=== PATIENT | female | born 1990 | race Caucasian/White ===

== ENCOUNTER 2018-05-10 13:49 | Emergency (ER) | payer OTHER ==
[~2018-05-10] VITALS: Ht 167.6 cm; Wt 104.3 kg
== END 2018-05-10 20:57 | disposition home or self-care (01) ==
LOC: ER 13:49
DX: N39.0 Urinary tract infection, site not specified (principal)

== ENCOUNTER 2018-07-14 16:21 | Emergency (ER) | payer OTHER ==
[~2018-07-14] VITALS: Ht 167.6 cm; Wt 108.9 kg
== END 2018-07-14 21:51 | disposition home or self-care (01) ==
LOC: ER 16:21
DX: K52.9 Noninfective gastroenteritis and colitis, unspecified (principal)

== ENCOUNTER → 2019-01-10 | Emergency (ER) | payer OTHER ==
[~2019-01-10] VITALS: Ht 167.6 cm; Wt 107.0 kg
== END | disposition left against medical advice (07) ==
LOC: ER 12:34
DX: Z53.20 Procedure and treatment not carried out because of patient's decision for unspecified reasons (principal)

== ENCOUNTER 2021-04-15 12:53 | Emergency (ER) | payer OTHER ==
[~2021-04-15] VITALS: Ht 167.6 cm; Wt 117.9 kg
== END 2021-04-15 19:55 | disposition home or self-care (01) ==
LOC: ER 12:53
DX: N39.0 Urinary tract infection, site not specified (principal); E86.0 Dehydration; D64.89 Other specified anemias; E87.6 Hypokalemia